=== PATIENT | female | born 2000 | race Caucasian/White ===

== ENCOUNTER 2018-10-02 20:08 | Emergency (ER) | payer SELFPAY ==
[~2018-10-02] VITALS: Ht 170.2 cm; Wt 83.0 kg
[2018-10-02 20:46] LABS: BASOPHILS % (AUTO) 0 % (0-10); EOSINOPHILS # (AUTO) 0.1 10^3/uL (0.0-0.3); EOSINOPHILS % (AUTO) 1 % (0-10); HEMATOCRIT 44 % (35-52); LYMPHOCYTES # (AUTO) 3.5 X 10^3 (1.0-4.0); LYMPHOCYTES % (AUTO) 43 % (12-44); MEAN CORPUSCULAR HEMOGLOBIN 31 PG (25-34); MEAN CORPUSCULAR HGB CONC 34 G/DL (32-36); MEAN CORPUSCULAR VOLUME 89 FL (80-99); MEAN PLATELET VOLUME 12.7 FL (7.4-10.4); MONOCYTES # (AUTO) 0.6 X 10^3 (0.0-1.0); MONOCYTES % (AUTO) 7 % (0-12); NEUTROPHILS # (AUTO) 3.9 X 10^3 (1.8-7.8); NEUTROPHILS % (AUTO) 48 % (42-75); PLATELET COUNT 220 10^3/uL (130-400); RED BLOOD COUNT 4.92 10^6/uL (4.35-5.85); RED CELL DISTRIBUTION WIDTH 12.1 % (10.0-14.5)
[2018-10-02 20:59] LABS: PROTHROMBIN TIME PATIENT 12.9 SEC (12.2-14.7)
--- NOTE | 2018-10-02 21:20 | ED EENT ---
History of Present Illness General Chief Complaint: Nasal Problems Stated Complaint: NOSE BLEEDS Nursing Triage Note: PT AMB TO ROOM #8 W/O DIFFICULTY. A&OX4. PT REPORTS APPROX X6 NOSE BLEEDS THROUGHOUT THIS DAY. PT REPORTS SHE EXPERIENCED LAST NOSE BLEED @ APPROX 1930 AND LASTED APPROX 20 MINUTES. PT REPORTS SHE IS WORRIED ABOUT HOW MUCH BLOOD SHE HAS LOST. REPORTS LH AND DIZZINESS. PT REPORTS SHE HAS NEVER EXPERIENCED A NOSE BLEED BEFORE. NO BLEEDING CURRENTLY. Source: patient Exam Limitations: no limitations History of Present Illness Date Seen by Provider: Oct 02, 2018 Time Seen by Provider: 20:38 Initial Comments This 18-year-old young lady presents to the emergency room complaining of nosebleeds from the right nostril intermittently throughout the day. She reports nosebleeds have been very heavy at times. She cannot identify any event or activity that has triggered the nosebleeds. She had an upper respiratory infection about 3 weeks ago. Some of her nosebleed has been posterior and she has coughed up some blood today. She denies any prior history of bleeding pathology. She does have heavy but short periods. She has felt a little lightheaded at times today. Allergies and Home Medications Patient Home Medication List Home Medication List Reviewed: Yes Review of Systems Review of Systems Constitutional: no symptoms reported Eyes: No Symptoms Reported Ears: No Symptoms Reported Nose: see HPI Mouth: no symptoms reported Throat: no symptoms reported Respiratory: no symptoms reported Cardiovascular: no symptoms reported Gastrointestinal: no symptoms reported : No Musculoskeletal: no symptoms reported Skin: no symptoms reported Neurological: No Symptoms Reported, See HPI Hematologic/Lymphatic: See HPI Immunological/Allergic: no symptoms reported Past Pkozslq-Bsadtr-Kqpiiu Hx Past Med/Social Hx: Reviewed and Corrections made Patient Social History Recent Foreign Travel: No Contact w/Someone Who Travel: No Recent Infectious Disease Expo: No Past Medical History Surgeries: Yes Appendectomy, Orthopedic, Tonsillectomy Respiratory: No Cardiac: No Neurological: No : No Last Menstrual Period: Sep 19, 2018 Reproductive Disorders: No Gastrointestinal: No Musculoskeletal: No Endocrine: No HEENT: No Cancer: No Psychosocial: No Physical Exam Vital Signs Vital Signs - First Documented 10/02/18 20:20 Temp 98.6 Pulse 57 Resp 16 B/P (MAP) 131/77 (95) Pulse Ox 100 O2 Delivery Room Air Height, Weight, BMI Height: 5'7.00" Weight: 183lbs. oz. 83.457155zm; BMI Method:Stated General Appearance: WD/WN, no apparent distress Eyes: bilateral eye normal inspection, bilateral eye PERRL, bilateral eye EOMI Ears: bilateral ear auricle normal, bilateral ear canal normal, bilateral ear TM normal Nose: normal inspection; No active bleeding, No dried blood Mouth/Throat: normal mouth inspection, pharynx normal Neck: normal inspection Cardiovascular: regular rate, rhythm, no edema, no murmur Respiratory: lungs clear, normal breath sounds, no respiratory distress, no accessory muscle use Neurologic/Psychiatric: health and wellness director II-XII nml as tested, no motor/sensory deficits, alert, normal mood/affect, oriented x 3 Skin: normal color, warm/dry Progress/Results/Core Measures Results/Orders Lab Results Laboratory Tests Test 10/02/18 20:37 Range/Units White Blood Count 8.0 4.3-11.0 10^3/uL Red Blood Count 4.92 4.35-5.85 10^6/uL Hemoglobin 15.0 11.5-16.0 G/DL Hematocrit 44 35-52 % Mean Corpuscular Volume 89 80-99 FL Mean Corpuscular Hemoglobin 31 25-34 PG Mean Corpuscular Hemoglobin Concent 34 32-36 G/DL Red Cell Distribution Width 12.1 10.0-14.5 % Platelet Count 220 130-400 10^3/uL Mean Platelet Volume 12.7 H 7.4-10.4 FL Neutrophils (%) (Auto) 48 42-75 % Lymphocytes (%) (Auto) 43 12-44 % Monocytes (%) (Auto) 7 0-12 % Eosinophils (%) (Auto) 1 0-10 % Basophils (%) (Auto) 0 0-10 % Neutrophils # (Auto) 3.9 1.8-7.8 X 10^3 Lymphocytes # (Auto) 3.5 1.0-4.0 X 10^3 Monocytes # (Auto) 0.6 0.0-1.0 X 10^3 Eosinophils # (Auto) 0.1 0.0-0.3 10^3/uL Basophils # (Auto) 0.0 0.0-0.1 10^3/uL Prothrombin Time 12.9 12.2-14.7 SEC INR Comment 1.0 0.8-1.4 Activated Partial Thromboplast Time 28 24-35 SEC Serum Test, Qualitative NEGATIVE NEGATIVE My Orders Orders - BERNARDO SERRANO MD Saline Lock/Iv-Start (10/02/18 20:38) Cbc With Automated Diff (10/02/18 20:38) Hcg,Qualitative Serum (10/02/18 20:38) Protime With Inr (10/02/18 20:38) Partial Thromboplastin Time (10/02/18 20:38) Vital Signs/I&O 10/02/18 10/02/18 20:20 21:30 Temp 98.6 98.6 Pulse 57 53 Resp 16 16 B/P (MAP) 131/77 (95) 131/77 (95) Pulse Ox 100 100 O2 Delivery Room Air Room Air Blood Pressure Mean: 95 Progress Progress Note : Progress Note Because of patient's assertion that she had very heavy bleeding and lightheadedness today, labs were obtained. They were unremarkable. Vital signs were also unremarkable. Discharge instructions reviewed with patient. She had no further bleeding during her time in the ER. Departure Impression Primary Impression: Epistaxis Disposition: 01 HOME, SELF-CARE Condition: Improved Departure-Patient Inst. Decision time for Depature: 21:19 Referrals: NO,LOCAL PHYSICIAN (PCP) Primary Care Physician Patient Instructions: Nosebleeds (DC) Add. Discharge Instructions: Drink plenty of clear liquids. Obtain [id number] Afrin nasal spray. If nosebleed returns, spray 2-4 squirts in each side of your nose and apply direct pressure for 20 minutes. If this does not resolve the bleeding, return to care. To help prevent further nose bleeds, avoid disrupting the nose if at all possible. This includes blowing her nose for the next 24 hours or placing anything inside your nose. Consider using a humidifier to decrease the dryness in your home. Sleep with your head elevated tonight. If nosebleeds become a recurrent problem despite these measures, consider referral to an ear, nose and throat specialist for cauterization. All discharge instructions reviewed with patient and/or family. Voiced understanding. BERNARDO SERRANO MD Oct 02, 2018 21:20
[2018-10-02 21:30] VITALS: BP 131/77
== END 2018-10-02 21:30 | disposition home or self-care (01) ==
LOC: ER 20:10
DX: R04.0 Epistaxis (principal); Z90.89 Acquired absence of other organs; Z90.49 Acquired absence of other specified parts of digestive tract
CPT/HCPCS: 36415; 84703; 85025; 85610; 85730; 99282

== ENCOUNTER 2020-05-31 12:19 | Emergency (ER) | payer BC ==
[~2020-05-31] VITALS: Ht 170.1 cm; Wt 94.5 kg
[2020-05-31] MEDS ORDERED: LACTATED RINGERS 1,000 ML IV SCH (12:45)
--- NOTE | 2020-05-31 12:45 | ED Abdominal Pain ---
General Stated Complaint: ABD PAIN Source of Information: Patient Exam Limitations: No Limitations History of Present Illness Date Seen by Provider: May 31, 2020 Time Seen by Provider: 12:45 Initial Comments The patient reports upper abdominal pain, intermittent, since Sunday night. Sates at times she has nausea and vomiting accompanying the pain which is a cramping type pain. She states she felt like she "was in labor". Pain currently /10. Timing/Duration: 2-3 Days Severity/Quality: Moderate, Severe Location: RUQ, LUQ Radiation: No Radiation Activities at Onset: Rest Modifying Factors: Improves With Movement Associated Symptoms: No Back Pain, No Chest Pain, No Diaphoresis, No Fever/Chills, No Heartburn; Nausea/Vomiting; No Shortness of Air, No Syncope Allergies and Home Medications Allergies Coded Allergies: No Known Drug Allergies (Unverified , 05/31/20) Patient Home Medication List Home Medication List Reviewed: Yes Review of Systems Review of Systems Constitutional: no symptoms reported, see HPI; No chills, No diaphoresis, No fever EENTM: No Symptoms Reported Respiratory: No Symptoms Reported; Denies Cough, Denies Shortness of Air Cardiovascular: No Symptoms Reported Gastrointestinal: See HPI; Denies Abdomen Distended; Abdominal Pain; Denies Blood Streaked Stools, Denies Constipated, Denies Diarrhea; Nausea; Denies Poor Appetite, Denies Poor Fluid Intake; Vomiting Genitourinary: No Symptoms Reported; Denies Burning, Denies Flank Pain, Denies Hematuria, Denies Pain, Denies Urgency Musculoskeletal: no symptoms reported Skin: no symptoms reported; No change in color, No change in hair/nails Psychiatric/Neurological: No Symptoms Reported Endocrine: No Symptoms Reported Hematologic/Lymphatic: No Symptoms Reported Past Jritwkm-Frucll-Fpdhoh Hx Patient Social History Type Used: Electronic/Vapor 2nd Hand Smoke Exposure: Yes Recent Foreign Travel: No Contact w/Someone Who Travel: No Recent Hopitalizations: No Seasonal Allergies Seasonal Allergies: No Past Medical History Surgeries: Yes Appendectomy, Orthopedic, Tonsillectomy Respiratory: No Cardiac: No Neurological: No Reproductive Disorders: No Female Reproductive Disorders: Polycystic Ovarian Dis Genitourinary: No Gastrointestinal: No Musculoskeletal: No Endocrine: No HEENT: No Cancer: No Psychosocial: No Integumentary: No Blood Disorders: No Physical Exam Vital Signs Vital Signs - First Documented 05/31/20 12:30 Temp 36.7 Pulse 89 Resp 18 B/P (MAP) 131/82 (98) Pulse Ox 99 O2 Delivery Room Air Capillary Refill : Height/Weight/BMI Height: 5'7.00" Weight: 183lbs. oz. 83.860479ei; BMI Method:Stated General Appearance: WD/WN, no apparent distress, obese HEENT: PERRL/EOMI Neck: non-tender, full range of motion, normal inspection Respiratory: chest non-tender, lungs clear, normal breath sounds, no respiratory distress, no accessory muscle use Cardiovascular: normal peripheral pulses, regular rate, rhythm, no edema, no murmur Peripheral Pulses: 2+ Dorsalis Pedis (R), 2+ Left Dors-Pedis (L) Gastrointestinal: normal bowel sounds, non tender, soft, no organomegaly, no pulsatile mass; No guarding, No rebound, No mass Rectal: deferred Extremities: normal range of motion, normal inspection, no pedal edema Back: normal inspection, no CVA tenderness, no vertebral tenderness Neurologic/Psychiatric: alert, normal mood/affect, oriented x 3 Skin: normal color, warm/dry; No cool, No diaphoresis, No damp, No jaundice, No pallor Lymphatic: no adenopathy Progress/Results/Core Measures Results/Orders Lab Results Laboratory Tests Test 05/31/20 13:01 Range/Units White Blood Count 6.0 4.3-11.0 10^3/uL Red Blood Count 4.96 4.35-5.85 10^6/uL Hemoglobin 14.8 11.5-16.0 G/DL Hematocrit 44 35-52 % Mean Corpuscular Volume 88 80-99 FL Mean Corpuscular Hemoglobin 30 25-34 PG Mean Corpuscular Hemoglobin Concent 34 32-36 G/DL Red Cell Distribution Width 12.5 10.0-14.5 % Platelet Count 239 130-400 10^3/uL Mean Platelet Volume 12.5 H 7.4-10.4 FL Neutrophils (%) (Auto) 53 42-75 % Lymphocytes (%) (Auto) 39 12-44 % Monocytes (%) (Auto) 7 0-12 % Eosinophils (%) (Auto) 2 0-10 % Basophils (%) (Auto) 0 0-10 % Neutrophils # (Auto) 3.2 1.8-7.8 X 10^3 Lymphocytes # (Auto) 2.3 1.0-4.0 X 10^3 Monocytes # (Auto) 0.4 0.0-1.0 X 10^3 Eosinophils # (Auto) 0.1 0.0-0.3 10^3/uL Basophils # (Auto) 0.0 0.0-0.1 10^3/uL Sodium Level 139 135-145 MMOL/L Potassium Level 4.5 3.6-5.0 MMOL/L Chloride Level 109 H 98-107 MMOL/L Carbon Dioxide Level 20 L 21-32 MMOL/L Anion Gap 10 5-14 MMOL/L Blood Urea Nitrogen 12 7-18 MG/DL Creatinine 0.91 0.60-1.30 MG/DL Estimat Glomerular Filtration Rate > 60 BUN/Creatinine Ratio 13 Glucose Level 92 70-105 MG/DL Calcium Level 9.1 8.5-10.1 MG/DL Corrected Calcium 8.9 8.5-10.1 MG/DL Total Bilirubin 0.5 0.1-1.0 MG/DL Aspartate Amino Transf (AST/SGOT) 18 5-34 U/L Alanine Aminotransferase (ALT/SGPT) 20 0-55 U/L Alkaline Phosphatase 59 40-136 U/L C-Reactive Protein High Sensitivity 0.46 0.00-0.50 MG/DL Total Protein 7.4 6.4-8.2 GM/DL Albumin 4.3 3.2-4.5 GM/DL Lipase 29 8-78 U/L My Orders Orders - KELIN CARLISLE PALLET RECTIFIER Lactated Ringers (Lr 1000 Ml Iv Solution (05/31/20 12:45) Cbc With Automated Diff (05/31/20 12:37) Comprehensive Metabolic Panel (05/31/20 12:37) Lipase (05/31/20 12:37) Hs C Reactive Protein (05/31/20 12:37) Hcg,Qualitative Urine (05/31/20 12:37) Us Gallbladder [id number] (05/31/20 12:37) Ed Iv/Invasive Line Start (05/31/20 12:37) Abdomen, Flat & Upright/Decub (05/31/20 13:33) Vital Signs/I&O 05/31/20 12:30 Temp 36.7 Pulse 89 Resp 18 B/P (MAP) 131/82 (98) Pulse Ox 99 O2 Delivery Room Air Departure Impression Primary Impression: Nonspecific abdominal pain Disposition: 01 HOME, SELF-CARE Condition: Stable Departure-Patient Inst. Decision time for Depature: 14:13 Referrals: ANUSHKA CASTILLO MD Patient Instructions: Acute Pain, Adult Add. Discharge Instructions: Please return to the ED for increased pain or nausea and vomiting, fever, or worsening of symptoms. Keep your appointment with Dr. Castillo. KELIN CARLISLE APRN May 31, 2020 12:45
[2020-05-31 13:09] LABS: BASOPHILS % (AUTO) 0 % (0-10); EOSINOPHILS # (AUTO) 0.1 10^3/uL (0.0-0.3); EOSINOPHILS % (AUTO) 2 % (0-10); HEMATOCRIT 44 % (35-52); HEMOGLOBIN 14.8 G/DL (11.5-16.0); LYMPHOCYTES # (AUTO) 2.3 X 10^3 (1.0-4.0); LYMPHOCYTES % (AUTO) 39 % (12-44); MEAN CORPUSCULAR HEMOGLOBIN 30 PG (25-34); MEAN CORPUSCULAR HGB CONC 34 G/DL (32-36); MEAN CORPUSCULAR VOLUME 88 FL (80-99); MEAN PLATELET VOLUME 12.5 FL (7.4-10.4); MONOCYTES # (AUTO) 0.4 X 10^3 (0.0-1.0); MONOCYTES % (AUTO) 7 % (0-12); NEUTROPHILS # (AUTO) 3.2 X 10^3 (1.8-7.8); NEUTROPHILS % (AUTO) 53 % (42-75); PLATELET COUNT 239 10^3/uL (130-400)
[2020-05-31 13:19] LABS: ALBUMIN 4.3 GM/DL (3.2-4.5); CHLORIDE 109 MMOL/L (98-107); POTASSIUM 4.5 MMOL/L (3.6-5.0); SODIUM 139 MMOL/L (135-145)
[2020-05-31 13:20] LABS: CALCIUM 9.1 MG/DL (8.5-10.1)
[2020-05-31 13:21] LABS: GLUCOSE 92 MG/DL (70-105)
[2020-05-31 13:22] LABS: TOTAL PROTEIN 7.4 GM/DL (6.4-8.2)
[2020-05-31 13:23] LABS: BILIRUBIN,TOTAL 0.5 MG/DL (0.1-1.0); CARBON DIOXIDE 20 MMOL/L (21-32)
[2020-05-31 13:25] LABS: ALKALINE PHOSPHATASE 59 U/L (40-136); CREATININE SERUM 0.91 MG/DL (0.60-1.30); GFR ESTIMATED > 60
[2020-05-31 13:26] LABS: BUN/CREATININE RATIO 13
[2020-05-31 13:28] LABS: ALANINE AMINOTRANSFERASE 20 U/L (0-55)
[2020-05-31 13:29] LABS: LIPASE 29 U/L (8-78)
--- NOTE | 2020-05-31 14:15 | Diagnostic Imaging Report ---
PROCEDURE: US Gallbladder. TECHNIQUE: Multiple real-time grayscale images were obtained over the right upper quadrant in various projections. INDICATION: Abdominal pain with nausea and vomiting. FINDINGS: Liver is normal in size at 15.5 cm. No discrete liver mass is detected. The portal vein is patent and shows normal direction of flow. Gallbladder is without stones or sludge. No wall thickening or biliary ductal dilatation is identified. Pancreas is obscured by bowel gas. Aorta is obscured. IVC appears patent. Right kidney is without calculi or hydronephrosis. There is no ascites. IMPRESSION: Unremarkable gallbladder ultrasound. Dictated by: Dictated on workstation # [id number]
[2020-05-31 14:30] VITALS: BP 131/82
[2020-05-31 14:40] LABS: BILIRUBIN,URINE NEGATIVE (NEGATIVE); CLARITY,URINE CLEAR; COLOR,URINE YELLOW; GLUCOSE, URINE (UA) NEGATIVE (NEGATIVE); KETONES,URINE NEGATIVE (NEGATIVE); LEUKOCYTE ESTERASE ,URINE TRACE (NEGATIVE); NITRITE,URINE NEGATIVE (NEGATIVE); PROTEIN,URINE NEGATIVE (NEGATIVE)
[2020-05-31 14:52] LABS: BACTERIA,URINE MODERATE /HPF; RBC,URINE 0-2 /HPF; SQUAMOUS EPITHELIAL CELL,UR 25-50 /HPF
== END 2020-05-31 14:30 | disposition home or self-care (01) ==
LOC: EDUNIT# 12:19 → ER 12:23
DX: R10.11 Right upper quadrant pain (principal); R10.12 Left upper quadrant pain; Z77.22 Contact with and (suspected) exposure to environmental tobacco smoke (acute) (chronic); E66.9 Obesity, unspecified
CPT/HCPCS: 36415; 76705; 80053; 81000; 83690; 84703; 85025; 86141; 87088